=== PATIENT | male | born 1985 | race Caucasian/White ===

== ENCOUNTER 2019-05-18 21:12 | Emergency (ER) | payer OTHER, SELFPAY ==
[2019-05-18 21:15] VITALS: BP 171/88; PULSE 64; RESP 16; TEMP 36.1; O2SAT 99
[2019-05-18 22:50] VITALS: BP 138/73; PULSE 78; RESP 20; O2SAT 99
--- NOTE | 2019-05-18 23:08 | ED.EAR ---
HPI - Ear Problem General Chief complaint: Ear Stated complaint: bilat ear pain Time Seen by Provider: 05/18/19 22:54 Source: patient and RN notes reviewed Mode of arrival: ambulatory Limitations: no limitations History of Present Illness HPI Narrative: Pt is a 34 y/o male presenting to the ED c/o otalgia. Pt reports he started experiencing bilateral otalgia last Monday. Pt states his pain worsened yesterday and also developed lt ear yellow drainage. Pt also reports nasal congestion, mild ST, or rhinorrhea, but denies fever or cough. Pt states he has been taking Tylenol for Sx's. Location: bilateral Discharge from ear: Reports yes - purulent (Yellow from lt ear) Associated symptoms ear: other (Nasal congestion; Mild ST; rhinorrhea) Related Data Home Medications Medication Instructions Recorded Confirmed No Home Medications 05/18/19 05/18/19 Allergies Allergy/AdvReac Type Severity Reaction Status Date / Time No Known Allergies Allergy Verified 05/18/19 22:52 Review of Systems Review of Systems: All systems reviewed & are unremarkable except as noted in HPI and below Constitutional: Constitutional: Denies fever(s) ENT: Reports otalgia (Bilateral), Reports nasal congestion, Reports sore throat (Mild) and Reports other (Rhinorrhea; Yellow drainage from lt ear) Respiratory: Respiratory: Denies cough PMFSH Past Medical History Medical History No significant past medical history Surgical History Surgical History No significant past surgical history Social History Social History Smoking status: Never smoker Gender identity (if verbalized by the patient): Male Exam Const: General: cooperative, no acute distress and alert Nutritional Appearance: well nourished Orientation/consciousness: patient oriented x3 Limitations: no limitations HENMT: Ears: Abnormal EAC present other (Small amount of fluid in lt) and TM abnormal bulging (Bilateral), wth effusion (Bilateral purulent), perforated (Lt TM) and other (Poor visualization of bony landmarks) Mouth: Yes lip normal and Yes moist mucous membranes Resp: Effort & Inspection: normal respiratory effort Auscultation: clear to auscultation bilaterally Cardio: Rate: regular rate Rhythm: regular rhythm GI: GI Palp: Yes Soft to palpation and No Tenderness to palpation present (GI) Auscultation: normal bowel sounds Skin: General skin exam: normal color Neuro: General: patient oriented x3 Cognition (Neuro): normal cognition Speech: normal speech Extrem: General: normal to inspection, full ROM and no clubbing, cyanosis or edema Psych: Mental Status: mental status grossly normal Affect: normal affect Attitude: cooperative Course Course Emergency Course: Patient with findings of bilateral otitis media with perforated tympanic membrane on the left. Patient will be prescribed antibiotics and given list of ENTs to arrange for follow-up. Vital Signs Vital signs: Vital Signs Temperature 97.0 F L 05/18/19 21:15 Pulse Rate 64 05/18/19 21:15 Respiratory Rate 16 05/18/19 21:15 Blood Pressure 171/88 H 05/18/19 21:15 Pulse Oximetry 99 05/18/19 21:15 Temperature 97.0 F L 05/18/19 21:15 Pulse Rate 78 05/18/19 22:50 Respiratory Rate 20 05/18/19 22:50 Blood Pressure 138/73 05/18/19 22:50 Pulse Oximetry 99 05/18/19 22:50 Medical Decision Making Vital Signs Vital Signs: Vital Signs Temperature 97.0 F L 05/18/19 21:15 Pulse Rate 64 05/18/19 21:15 Respiratory Rate 16 05/18/19 21:15 Blood Pressure 171/88 H 05/18/19 21:15 Pulse Oximetry 99 05/18/19 21:15 Temperature 97.0 F L 05/18/19 21:15 Pulse Rate 78 05/18/19 22:50 Respiratory Rate 20 05/18/19 22:50 Blood Pressure 138/73 05/18/19 22:50 Pulse Oximetry 99 05/18/19 22:50 Critical Care Time Critical Care Time
[2019-05-19 00:42] VITALS: BP 130/82; PULSE 80; RESP 20; O2SAT 100
== END 2019-05-19 00:44 | disposition home or self-care (01) ==
PROVIDERS: Emergency Provider Emergency Medicine
DX: H66.013 Acute suppurative otitis media with spontaneous rupture of ear drum, bilateral (principal)
CPT/HCPCS: 99283

== ENCOUNTER 2020-01-25 17:06 | Emergency (ER) | payer OTHER, SELFPAY ==
--- NOTE | ~2020-01-25 | XR_ITS ---
EXAMINATION: XR chest 1V portable INDICATION: Shortness of breath, COVID positive TECHNIQUE: Portable AP chest at 2151 hours COMPARISON: None available FINDINGS: There are diffuse, patchy airspace opacities. No pleural effusion or pneumothorax is identi fied. The cardiomediastinal silhouette is normal. The visualized osseous structures are unremarkable. IMPRESSION: 1. Mild diffuse lung disease, consistent with COVID 19 pneumonia. Reviewed, dictated and finalized at location [facility]
[2020-01-25 17:36] VITALS: BP 144/80; PULSE 88; RESP 18; TEMP 36.2; O2SAT 98
--- NOTE | 2020-01-25 21:29 | ED.GENADULT ---
HPI - General Adult General Chief complaint: Shortness of Breath/Dyspnea Stated complaint: Short of breath with positive COVID test Time Seen by Provider: 01/25/20 18:49 Source: patient Mode of arrival: ambulatory Limitations: no limitations History of Present Illness HPI narrative: Patient is a 34-year-old male who presents with 4 to 5 days of positive Covid upper respiratory infection with mild cough mild shortness of breath intermittent fevers slight headache and a few episodes of diarrhea patient has not taken anything for his symptoms patient presents in no distress does not appear uncomfortable and does not have a history of lung or heart disease Related Data Allergies Allergy/AdvReac Type Severity Reaction Status Date / Time No Known Allergies Allergy Verified 05/18/19 22:52 Review of Systems Review of Systems: All systems reviewed & are unremarkable except as noted in HPI and below PMFSH Past Medical History Medical History (Updated 01/25/20 @ 21:31 by Ezekiel Calvillo PA-C) No significant past medical history Surgical History Surgical History No significant past surgical history Social History Social History Smoking status: Never smoker Gender identity (if verbalized by the patient): Male Exam Narrative: Exam Narrative: GENERAL: Well-appearing, obese, and in no acute distress. HEAD: Normocephalic, atraumatic. EYES: PERRLA and EOMI. ENT: Nares clear, no rhinorrhea or epistaxis. Mucous membranes moist. CHEST: Clear to auscultation. No respiratory distress. No wheezes rales or rhonchi HEART: Regular rate and rhythm. No murmur heard. EXTREMITIES: Normal range of motion. No edema. SKIN: Warm, dry, no rash. NEURO: No focal deficits. Alert and oriented x3. PSYCH: Normal mood and affect. Course Course Emergency Course: Patient with Covid normal vital signs ABCs stable felt appropriate for outpatient reevaluation no hypoxemia Vital Signs Vital signs: Vital Signs Temperature 97.2 F L 01/25/20 17:36 Pulse Rate 88 01/25/20 17:36 Respiratory Rate 18 01/25/20 17:36 Blood Pressure 144/80 H 01/25/20 17:36 Pulse Oximetry 98 01/25/20 17:36 Temperature 97.2 F L 11/14/20 17:36 Pulse Rate 88 01/25/20 17:36 Respiratory Rate 18 01/25/20 17:36 Blood Pressure 144/80 H 01/25/20 17:36 Pulse Oximetry 98 01/25/20 17:36 Medical Decision Making MDM Narrative Medical decision making narrative: Patient with Covid 19 in no distress felt appropriate for outpatient reevaluation by primary care advised to follow with primary care to continue to hydrate will be treated symptomatically Vital Signs Vital Signs: Vital Signs Temperature 97.2 F L 01/25/20 17:36 Pulse Rate 88 01/25/20 17:36 Respiratory Rate 18 01/25/20 17:36 Blood Pressure 144/80 H 01/25/20 17:36 Pulse Oximetry 98 01/25/20 17:36 Temperature 97.2 F L 01/25/20 17:36 Pulse Rate 88 01/25/20 17:36 Respiratory Rate 18 01/25/20 17:36 Blood Pressure 144/80 H 01/25/20 17:36 Pulse Oximetry 98 01/25/20 17:36 Discharge Plan Discharge Clinical Impression: COVID-19 Patient Disposition: Home, Self-Care Condition: Stable Instructions: Antibiotic Form, COVID-19 (Coronavirus Disease 2019) (ED) Additional Instructions: Follow up with your primary care provider within 1-2 days to set up for reevaluation. Go to ER for shortness of breath, difficulty breathing, chest pain, fever/chills, weakness, nauseau/vomitting, etc. or any other concerns. Self quarantine Take any prescribed medications as directed. Purchase home pulse oximeter if it dips below 92 contact primary care or return If you do not have a drug allergy to tylenol or motrin and can tolerate it then take tylenol or motrin as needed for discomfort/pain. Prescriptions: New loratadine [Claritin] 10 mg tablet 10
[2020-01-25 21:36] VITALS: BP 135/84; PULSE 69; RESP 12; O2SAT 97
[2020-01-25 22:14] VITALS: BP 118/72; PULSE 82; RESP 20; TEMP 36.7; O2SAT 96
== END 2020-01-25 22:16 | disposition home or self-care (01) ==
LOC: ANHED 21:34
PROVIDERS: Emergency Provider Emergency Medicine
DX: U07.1 COVID-19 (principal); R91.8 Other nonspecific abnormal finding of lung field
CPT/HCPCS: 71045; 99283